=== PATIENT | male | born 1985 | race Caucasian/White ===

== ENCOUNTER 2018-08-15 16:37 | Emergency (ER) | payer OTHER ==
[2018-08-15] MEDS ORDERED: SODIUM CHLORIDE 0.9% 500 ML 500 ML IV STA (17:17)
--- NOTE | 2018-08-15 17:23 | ED ---
Abdominal Pain HPI - General Chief Complaint: Abdominal Pain Stated Complaint: Abd.pain Time Seen by Provider: 08/15/18 16:53 Source: patient Mode of arrival: ambulatory Limitations: no limitations - History of Present Illness Initial Comments: 33-year-old male with history of hypertension presenting today for chief complaint of left lower abdominal pain he states the past 4 hours he has had left lower abdominal pain he states increases with movement and is sharp in nature. He states the pain is less when he is sitting still. He denies radiation of the pain. He states it comes and goes. Patient denies any melena hematochezia fever chills or night sweats. Patient denies right lower bowel pain, upper abdominal pain chest pain or shortness of breath. Remaining review of system negative. Pt appears well, lifting and playing with child in room. No distress. VS wtihin acceptable limits. - Related Data Home Medications Medication Instructions Recorded Confirmed Amoxicillin 250 mg PO TID 08/15/18 08/15/18 Ibuprofen [Advil] 400 mg PO DAILY PRN 08/15/18 08/15/18 Ibuprofen [Motrin] 800 mg PO TID PRN 08/15/18 08/15/18 Lisinopril [Zestril] 10 mg PO DAILY 08/15/18 08/15/18 Previous Rx's Medication Instructions Recorded Amoxic-Pot Clav 875-125Mg 1 tab PO Q12HR 10 Days #20 tablet 08/15/18 [Augmentin 875-125] Allergies Allergy/AdvReac Type Severity Reaction Status Date / Time No Known Allergies Allergy Verified 08/15/18 17:04 Review of Systems ROS Statement: Those systems with pertinent positive or pertinent negative responses have been documented in the HPI. ROS Other: All systems not noted in ROS Statement are negative. Past Medical History Past Medical History: Hypertension History of Any Multi-Drug Resistant Organisms: None Reported Past Surgical History: Orthopedic Surgery Additional Past Surgical History / Comment(s): rt knee Past Psychological History: ADD/ADHD Smoking Status: Current every day smoker Past Alcohol Use History: None Reported Past Drug Use History: None Reported General Exam - General Exam Comments Initial Comments: General: The patient is awake and alert, in no distress, and does not appear acutely ill. Eye: Pupils are equal, round and reactive to light, extra-ocular movements are intact. No nystagmus. There is normal conjunctiva bilaterally. No signs of icterus. Ears, nose, mouth and throat: There are moist mucous membranes and no oral lesions. Neck: The neck is supple, there is no tenderness or JVD. Cardiovascular: There is a regular rate and rhythm. No murmur, rub or gallop is appreciated. Respiratory: Lungs are clear to auscultation, respirations are non-labored, breath sounds are equal. No wheezes, stridor, rales, or rhonchi. Gastrointestinal: No noted diaphoresis, jaundice, pallor, protecting postures or squirming. Symmetrical pigmentation of abdomen without signs of inflammation. Umbilicus mildline, inverted without swelling. No dilated veins. Abdomen contour obese, no noted abdominal distention. No visible masses. No peristalsis, aortic pulsati ons, or ventral hernia. Bowel sounds audible in all 4 quadrants, unremarkable. There is tenderness to deep palpation of the left lower abdomen. There is no pain no patient the right lower abdomen no rebound tenderness rigidity or guarding. Patient has no upper abdominal pain to palpation. Liver edge, not palpable. Spleen edge, right and left kidney not palpable. Superior bladder margin non-tender. Special Testing: Negative [place], Rovsing, McBurney, Danyel, cutaneous hyperesthesia.Negative Heel Jar test. No CVA tenderness. Digital rectal exam deferred. Negative monae turners or cullens sign Musculoskeletal: Normal ROM, no tenderness. Strength 5/5. Sensation intact. Pulses equal bilaterally 2+. Neurological: A&O x 3. CN II-XII intact, There are no obvious motor or sensory deficits. Coordination appears grossly intact. Speech is normal. Skin: Skin is warm and dry and no rashes or lesions are noted. Psychiatric: Cooperative, appropriate mood & affect, normal judgment. Limitations: no limitations Course Vital Signs 08/15/18 16:42 Temperature 98.3 F Pulse Rate 99 Respiratory 20 Rate Blood Pressure 131/85 O2 Sat by Pulse 97 Oximetry Medical Decision Making - Medical Decision Making 33-year-old male presented for left lower abdominal pain. He states it began yesterday sharp in nature. Increases with movement. Patient has family history of diverticulitis. Patient has pain in the left lower quadrant upon examination. For diverticulitis. CT revealed evidence of non-complicated diverticulitis. With mild inflammation. Patient be started on Augmentin. Patient states he is currently on amoxicillin for treatment of a dental infection as instructed patient to discontinue this medication. Pt is to diverticulitis diet which was discussed. Return parameters were discussed with patient. Patient to follow up GI. I discussed the case attempted by Dr. Lerma over the phone agreeable with care plan and discharge at this time. - Lab Data Result diagrams: 08/15/18 17:40 08/15/18 17:40 Lab Results 08/15/18 08/15/18 08/15/18 Range/Units 17:40 17:40 18:50 WBC 10.1 (3.8-10.6) k/uL RBC 4.73 (4.30-5.90) m/uL Hgb 14.0 (13.0-17.5) gm/dL Hct 41.8 (39.0-53.0) % MCV 88.4 (80.0-100.0) fL MCH 29.7 (25.0-35.0) pg MCHC 33.6 (31.0-37.0) g/dL RDW 12.7 (11.5-15.5) % Plt Count 304 (150-450) k/uL Neutrophils % 74 % Lymphocytes % 16 % Monocytes % 7 % Eosinophils % 2 % Basophils % 1 % Neutrophils # 7.4 (1.3-7.7) k/uL Lymphocytes # 1.6 (1.0-4.8) k/uL Monocytes # 0.7 (0-1.0) k/uL Eosinophils # 0.2 (0-0.7) k/uL Basophils # 0.1 (0-0.2) k/uL Sodium 141 (137-145) mmol/L Potassium 4.2 (3.5-5.1) mmol/L Chloride 107 (98-107) mmol/L Carbon Dioxide 26 (22-30) mmol/L Anion Gap 8 mmol/L BUN 16 (9-20) mg/dL Creatinine 1.27 H (0.66-1.25) mg/dL Est GFR (CKD-EPI)AfAm 85 (>60 ml/min/1.73 sqM) Est GFR (CKD-EPI)NonAf 73 (>60 ml/min/1.73 sqM) Glucose 95 (74-99) mg/dL Calcium 9.8 (8.4-10.2) mg/dL Total Bilirubin 0.4 (0.2-1.3) mg/dL AST 48 (17-59) U/L ALT 60 (21-72) U/L Alkaline Phosphatase 108 (38-126) U/L Total Protein 7.7 (6.3-8.2) g/dL Albumin 4.5 (3.5-5.0) g/dL Amylase 48 (30-110) U/L Lipase 224 (23-300) U/L Urine Color Light Yellow Urine Appearance Clear (Clear) Urine pH 7.0 (5.0-8.0) Ur Specific [place] 1.013 (1.001-1.035) Urine Protein Negative (Negative) Urine Glucose (UA) Negative (Negative) Urine Ketones Negative (Negative) Urine Blood Negative (Negative) Urine Nitrite Negative (Negative) Urine Bilirubin Negative (Negative) Urine Urobilinogen <2.0 (<2.0) mg/dL Ur Leukocyte Esterase Negative (Negative) Disposition Clinical Impression: Diverticulitis, Abdominal pain Disposition: HOME SELF-CARE Condition: Good Instructions (If sedation given, give patient instructions): Diverticulitis (ED), Diverticulitis Diet (ED) Additional Instructions: Please use medication as discussed. Please follow-up with family doctor in the next 2 days, gastroenterology within the next 1-2 weeks Please return to emergency room if the symptoms increase or worsen or for any other concerns. Prescriptions: Amoxic-Pot Clav 875-125Mg [Augmentin 875-125] 1 tab PO Q12HR 10 Days #20 tablet Is patient prescribed a controlled substance at d/c from ED?: No Referrals: Brennen Serna MD [Primary Care Provider] - 1-2 days Lucas العلي MD [STAFF PHYSICIAN] - 1-2 days Time of Disposition: 19:34
[2018-08-15 17:58] LABS: Basophils # (A) 0.1 k/uL (0-0.2); Basophils % (A) 1 %; Eosinophils # (A) 0.2 k/uL (0-0.7); Eosinophils % (A) 2 %; HCT 41.8 % (39.0-53.0); Lymphocytes # (A) 1.6 k/uL (1.0-4.8); Lymphocytes % (A) 16 %; MCH 29.7 pg (25.0-35.0); MCHC 33.6 g/dL (31.0-37.0); MCV 88.4 fL (80.0-100.0); Mean Platelet Volume 7.6; Monocytes # (A) 0.7 k/uL (0-1.0); Monocytes % (A) 7 %; Neutrophils # (A) 7.4 k/uL (1.3-7.7); Neutrophils % (A) 74 %; Platelet Count 304 k/uL (150-450); RBC 4.73 m/uL (4.30-5.90); RDW 12.7 % (11.5-15.5); WBC 10.1 k/uL (3.8-10.6)
[2018-08-15 18:07] LABS: Albumin 4.5 g/dL (3.5-5.0); Calcium 9.8 mg/dL (8.4-10.2); Potassium 4.2 mmol/L (3.5-5.1); Total Bilirubin 0.4 mg/dL (0.2-1.3); Total Protein 7.7 g/dL (6.3-8.2)
[2018-08-15 19:06] LABS: Appearance,Urine Clear (Clear); Bilirubin,Urine Negative (Negative); Blood,Urine Negative (Negative); Color,Urine Light Yellow; Glucose,Urine (UA) Negative (Negative); Ketones,Urine Negative (Negative); Leukocyte Esterase,Urine Negative (Negative); Nitrite,Urine Negative (Negative); Protein,Urine Negative (Negative); Specific Gravity,Urine 1.013 (1.001-1.035); Urobilinogen,Urine <2.0 mg/dL (<2.0)
--- NOTE | 2018-08-15 19:24 | CT ---
EXAMINATION TYPE: CT abdomen pelvis w con DATE OF EXAM: 08/15/2018 COMPARISON: None HISTORY: Lower abdominal pain CT DLP: 1884.8 mGycm Automated exposure control for dose reduction was used. TECHNIQUE: Helical acquisition of images was performed from the lung bases through the pelvis. CONTRAST: Performed without Oral Contrast and with IV Contrast, patient injected with 100 mL of Isovue 300. FINDINGS: Lung bases are clear. There is no pleural effusion. Heart size is normal. There is no pericardial eff usion. There is low attenuation in the liver consistent with fatty infiltration. Spleen pancreas appe ar normal. Gallbladder is contracted. Bile ducts are not dilated. Stomach appears normal. There is no adrenal mass. Kidneys show satisfactory contrast opacification. T here is no hydronephrosis. There is no retroperitoneal adenopathy. Bladder distends smoothly. There i s no free fluid in the pelvis. There is no inguinal hernia. There are multiple sigmoid diverticula in the proximal sigmoid colon. There is fat stranding around t he proximal sigmoid colon. There is no free air. There is no ascites. Appendix appears normal. There is no evidence of a bowel o bstruction. The bony pelvis appears intact. Lumbar spine is intact. IMPRESSION: THERE IS MILD WALL THICKENING AND SURROUNDING INFLAMMATORY CHANGES IN THE PROXIMAL SIGMOID COLON CONS ISTENT WITH ACUTE DIVERTICULITIS. NO ABSCESS SEEN. FATTY INFILTRATION OF THE LIVER.
[2018-08-15] MEDS ORDERED: KETOROLAC 30 MG/ML 1 ML VIAL IVP STA (19:37)
[2018-08-15 19:58] VITALS: BP 137/89; PULSE 75; RESP 18; TEMP 97.6
== END 2018-08-15 19:55 | disposition home or self-care (01) ==
LOC: EC 16:37
DX: K57.92 Diverticulitis of intestine, part unspecified, without perforation or abscess without bleeding (principal); I10 Essential (primary) hypertension; F17.200 Nicotine dependence, unspecified, uncomplicated; Z79.899 Other long term (current) drug therapy
CPT/HCPCS: 36415; 80053; 82150; 83690; 85025; 81003; 74177; 99284; 96374; J1885; Q9967